=== PATIENT | male | born 1960 | race Caucasian/White ===

== ENCOUNTER 2017-10-21 10:53 | Emergency (ER) | payer BC ==
[~2017-10-21] VITALS: Ht 175.3 cm; Wt 98.4 kg
[2017-10-21] MEDS ORDERED: AMLODIPINE BESYL5 MG PO (11:47)
[2017-10-21] MEDS ORDERED: VALSARTAN-HCTZ1 EAC2 PO (11:47)
[2017-10-21 12:45] LABS: ADD MIUA? YES; BILIRUBIN NEGATIVE; BLOOD SMALL; COLOR YELLOW ((YELLOW)); GLUCOSE (STRIP) NEGATIVE; KETONES NEGATIVE; LEUKOCYTES TRACE; NITRITE NEGATIVE; PROTEIN (STRIP) 30; SPECIFIC GRAVITY 1.026 (1.000-1.030); UROBILINOGEN 0.2 MG/DL (0.2-1.0)
[2017-10-21 12:48] LABS: BACTERIA NONE SEEN /HPF; EPITHELIAL CELLS NONE SEEN /HPF; MUCUS 2+ /LPF; WHITE BLOOD CELLS 0-5 /HPF (0-5)
[2017-10-21 13:13] LABS: HEMATOCRIT 42.7 % (38.0-50.0); MCH 29.7 PG (29.0-34.0); MCHC 33.3 G/DL (30.0-36.0); MCV 89.3 FL (86-99); MEAN PLAT.VOLUME 9.4 uM^3 (9.0-12.4); PLATELET COUNT 235 K/uL (156-360); RBC DIS.WIDTH-CV 12.5 % (11.8-14.6); RBC DIS.WIDTH-SD 41.2 % (39-53); RED BLOOD COUNT 4.78 M/uL (4.00-5.50); WHITE BLOOD COUNT 8.3 K/uL (4.1-10.2)
[2017-10-21 13:22] LABS: CHLORIDE 108 mEq/L (99-109); POTASSIUM 3.5 mEq/L (3.7-5.4); SODIUM 140 mEq/L (136-147)
[2017-10-21 13:24] LABS: GLUCOSE 91 mg/dL (70-99)
[2017-10-21 13:25] LABS: ANION GAP 8 MEQ/L (2-14)
[2017-10-21 13:26] LABS: TOTAL BILIRUBIN 0.5 mg/dL (0.0-1.0)
[2017-10-21 13:27] LABS: ALKALINE PHOSPHATASE 71 IU/L (3-129)
[2017-10-21 13:28] LABS: GFR ESTIMATE (CALCULATED) > 59 mL/min/
[2017-10-21 13:29] LABS: UREA NITROGEN (BUN) 24 mg/dL (9-23)
[2017-10-21 13:31] LABS: LIPASE 19 U/L (1.0-51.0); URIC ACID 7.3 mg/dL (3.1-9.2)
[2017-10-21] MEDS ORDERED: CITRATE OF MAG296 ML PO (13:44)
[2017-10-21] MEDS ORDERED: FLEXERIL10 MG PO (13:44)
[2017-10-21] MEDS ORDERED: NAPROSYN500 MG PO (13:44)
[2017-10-21 13:58] VITALS: BP 128/77
== END 2017-10-21 14:00 | disposition home or self-care (01) ==
LOC: EME 10:53
PROVIDERS: Physician Assistant
DX: S93.402A Sprain of unspecified ligament of left ankle, initial encounter (principal); S29.012A Strain of muscle and tendon of back wall of thorax, initial encounter; X58.XXXA Exposure to other specified factors, initial encounter; K59.00 Constipation, unspecified; I10 Essential (primary) hypertension; F17.200 Nicotine dependence, unspecified, uncomplicated
CPT/HCPCS: 73610; 73630; 74022; 80053; 81003; 83690; 84550; 85027; 99281; 99284